=== PATIENT | male | born 1935 | race Hispanic/Latino ===

== ENCOUNTER 2024-10-26 15:01 | Inpatient (IN) | payer OTHER ==
[2024-10-26 16:26] LABS: Absolute Eosinophils 0.1 K/uL (0-0.5); Absolute Lymphocytes (CBC) 1.2 K/uL (0.7-4.9); Absolute Monocytes 0.5 K/uL (0.1-1.3); Absolute Neutrophil 4.9 K/uL (1.8-8.0); Basophils % 0.4 % (0-1.3); Hematocrit 37.9 % (39.6-49.0); Hemoglobin 13.1 g/dL (13.6-17.9); Lymphocytes % 18.1 % (15.3-44.8); MCH 28.9 pg (27.0-35.0); MCHC 34.6 g/dL (32.0-36.0); MCV 83.7 fL (80-100); MPV 7.7 fL (7.6-11.3); Monocytes % 7.9 % (3.3-12.3); Neutrophils % 71.6 % (41.7-73.7); Platelets 272 thou/uL (152-406); RBC Red Blood Cell Count 4.53 M/uL (4.33-5.43); Red Cell Distribution Width 14.1 % (12.1-15.2)
[2024-10-26 16:41] LABS: AST/SGOT 12 U/L (15-37); Albumin 3.6 g/dL (3.4-5.0); Albumin/Globulin Ratio 0.9 (1.1-1.8); Alkaline Phosphatase 76 U/L (45-117); Anion Gap 6.5 mEq/L (5.0-15.0); BUN Blood Urea Nitrogen 19 mg/dL (7-18); Bicarbonate 30 mEq/L (21-32); Bilirubin Total 0.5 mg/dL (0.2-1.0); Globulin 4.1 g/dL (2.3-3.5); Glomerular Filtration Rate 83 ml/min (=/>90); Glucose Level 113 mg/dL (74-106); Lipase 34 U/L (13-75); Potassium 3.5 mEq/L (3.5-5.1); Protein, Total 7.7 g/dL (6.4-8.2); Sodium Level 134 mEq/L (136-145)
[2024-10-26 16:43] LABS: ALT/SGPT < 14 U/L (16-61)
[2024-10-26 17:14] LABS: Urine Bilirubin NEGATIVE (Negative); Urine Blood Negative (Negative); Urine Clarity Clear (Clear); Urine Color Colorless (Yellow); Urine Glucose NEGATIVE (Negative); Urine Ketones NEGATIVE (Negative); Urine Microscopic Reflex YN NO UMIC; Urine Nitrite NEGATIVE (Negative); Urine Protein NEGATIVE (Negative); Urine Urobilinogen Normal (Normal)
--- NOTE | 2024-10-26 17:14 | RAD REPORT ---
EXAMINATION: CT ABDOMEN AND PELVIS WITH CONTRAST CLINICAL INDICATION: ABD PAIN TECHNIQUE: CT abdomen and pelvis was performed, after the administration of IV contrast, as [facility]. Axial, sagittal and coronal reconstructions were obtained. One or more of the following dose reduction techniques were used: Automated exposure control, adjustment of the mA and k V according to patient size, and iterative reconstruction. Unless otherwise specified, incidental findings do not require dedicated imaging follow-up. COMPARISON: No prior exam. FINDINGS: LOWER CHEST: The visualized lung bases are clear. Small hiatal hernia. LIVER: Mild fatty liver is present. No worrisome focal lesion or biliary dilatation is seen. Small low-density lesion left lobe liver measuring 6 mm, likely benign. Cholecystectomy. SPLEEN: Normal size. No focal lesion. PANCREAS: No mass, ductal dilation, or marge-pancreatic fluid. ADRENALS: Normal; no mass. KIDNEYS: Normal size and contour. No hydronephrosis. GASTROINTESTINAL TRACT: There is significant stool retention throughout the colon with advanced diver ticulosis coli sigmoid colon without diverticulitis. Focal ventral hernia containing mildly thickened segment of small bowel. Small bowel fecalization. APPENDIX: Appendix not visualized, but no inflammatory changes in region of appendix. LYMPH NODES: No lymphadenopathy. MUSCULOSKELETAL: Mild lower lumbar degenerative changes. ADDITIONAL FINDINGS: Significant prostate enlargement. IMPRESSION: Significant fecal retention in the colon with small bowel fecal fecallization. Multiple ventral hernia containing mildly thickened small bowel loop. Suggest clinical assessment for possible incarceration. Advanced sigmoid diverticulosis coli is present without diverticulitis findings. Colonoscopy may be c onsidered for direct visualization. Moderate prostate enlargement.
--- NOTE | 2024-10-26 20:25 | EDPHYS ---
Physician Documentation [facility] Name: Gaetano Coates Age: 88 yrs Sex: Male : 1935 Arrival Date: 10/26/2024 Time: 15:01 Bed IW7 Private MD: ED Physician Katharine Ellsworth HPI: 10/26 20:23 This 88 yrs old Male presents to ER via Ambulatory with complaints of Groin gb1 Pain, Back Pain. 20:23 88-year-old male with groin pain and back pain and frequency and urgency of gb1 urination. He has a history of BPH, hypertension and dementia. He denies any fever chills denies any nausea or vomiting or diarrhea. He has had symptoms for 2 to 3 days.. Historical: - Allergies: 15:53 No Known Allergies; iw - PMHx: 15:53 Dementia; Hypertensive disorder; enlarged prostate; iw - PSHx: 15:53 hernia; knee; iw - Immunization history:: Adult Immunizations not up to date. - Infectious Disease History:: Denies. - Social history:: Smoking status: Patient denies any tobacco usage or history of. Exam: 20:23 Constitutional: This is a well developed, well nourished patient who is awake, alert, gb1 and in no acute distress. Head/Face: Normocephalic, atraumatic. Eyes: Pupils equal round and reactive to light, extra-ocular motions intact. Lids and lashes normal. Conjunctiva and sclera are non-icteric and not injected. Cornea within normal limits. Periorbital areas with no swelling, redness, or edema. ENT: Nares patent. No nasal discharge, no septal abnormalities noted. Tympanic membranes are normal and external auditory canals are clear. Oropharynx with no redness, swelling, or masses, exudates, or evidence of obstruction, uvula midline. Mucous membranes moist. Neck: Trachea midline, no thyromegaly or masses palpated, and no cervical lymphadenopathy. Supple, full range of motion without nuchal rigidity, or vertebral point tenderness. No Meningismus. Chest/axilla: Normal chest wall appearance and motion. Nontender with no deformity. No lesions are appreciated. Cardiovascular: Regular rate and rhythm with a normal S1 and S2. No gallops, murmurs, or rubs. Normal PMI, no JVD. No pulse deficits. Respiratory: Lungs have equal breath sounds bilaterally, clear to auscultation and percussion. No rales, rhonchi or wheezes noted. No increased work of breathing, no retractions or nasal flaring. Abdomen/GI: Diffuse generalized tenderness with normal bowel sounds. No distension or tympany. No guarding or rebound. No evidence of tenderness throughout. Skin: Warm, dry with normal turgor. Normal color with no rashes, no lesions, and no evidence of cellulitis. MS/ Extremity: Pulses equal, no cyanosis. Neurovascular intact. Full, normal range of motion. Neuro: Awake and alert, GCS 15, oriented to person, place, time, and situation. Cranial nerves II-XII grossly intact. Motor strength 5/5 in all extremities. Sensory grossly intact. Cerebellar exam normal. Normal gait. Vital Signs: 15:51 BP 158 / 107; Pulse 68; Resp 19; Temp 98.4; Pulse Ox 100% on R/A; Weight 86.18 kg; iw Height 5 ft. 11 in. ; Pain 8/10; 18:30 BP 130 / 65; Pulse 70; Resp 16; Pulse Ox 97% on R/A; db 19:30 BP 156 / 116; Pulse 83; Resp 17; Pulse Ox 98% on R/A; ay 20:42 BP 141 / 73; Pulse 76; Resp 18; Pulse Ox 98% on R/A; ay 21:03 BP 124 / 56; Pulse 81; Resp 16; Pulse Ox 98% on R/A; ay 22:15 BP 139 / 81; Pulse 77; Resp 17; Pulse Ox 95% on R/A; ay 23:00 BP 127 / 73; Pulse 67; Resp 16; Pulse Ox 96% on R/A; ay 15:51 Body Mass Index 26.50 (86.18 kg, 180.34 cm) iw 15:51 Pain Scale: Adult iw MDM: 15:47 Medical Screening Exam initiated gb 20:23 Data reviewed: vital signs, nurses notes, radiologic studies, CT scan. gb1 20:23 ED course: 88-year-old male with generalized abdominal pain he has a history of a gb1 ventral hernia repair several years ago today he shows multiple ventral hernias with concern for thickened small bowel loops that is consistent with and concerning for incarceration. I discussed the case with Dr. Barraza and he recommended hospital observation with repeat exam overnight and then likely to proceed with a nonoperative setting. Will plan to continue continue the patient's n.p.o. status after midnight and treat his abdominal pain. I discussed the plan of care with the patient's and the patient who are both agreeable.. 10/26 15:56 Order name: CBC with Diff; Complete Time: 17:30 gb1 10/26 15:56 Order name: CMP; Complete Time: 17:30 gb1 10/26 15:56 Order name: Lipase; Complete Time: 17:30 gb1 10/26 15:56 Order name: Urinalysis w/ reflexes; Complete Time: 17:30 gb1 10/26 21:02 Order name: Urinalysis w/ reflexes EDMS 10/26 21:02 Order name: CBC with Automated Diff EDMS 10/26 21:02 Order name: CBC with Automated Diff EDMS 10/26 21:02 Order name: Comprehensive Metabolic Panel EDMN 10/26 21:02 Order name: Comprehensive Metabolic Panel EDMN 10/26 16:11 Order name: CT Abd/Pelvis - IV Contrast Only; Complete Time: 17:30 gb1 10/26 15:56 Order name: IV Saline Lock; Complete Time: 18:41 gb1 10/26 15:56 Order name: Labs collected and sent; Complete Time: 18:41 gb1 10/26 20:12 Order name: NPO gb1 Administered Medications: No medications were administered Disposition Summary: 10/26/24 20:25 Hospitalization Ordered Notes: Hospitalization Status: Observation gb1 Provider: Sudeep Uriostegui [facility] Location: Telemetry/MedSur (observation) gb1 Condition: Stable gb1 Problem: an acute exacerbation gb1 Symptoms: have worsened gb1 Bed/Room Type: Standard [facility] Room Assignment: 401(10/26/24 21:28) kl Diagnosis - Abdominal pain, Generalized gb1 - Other and unspecified ventral hernia with obstruction, without gangrene gb1 Forms: - Medication Reconciliation Form gb1 - SBAR form gb1 - Leadership Thank You Letter gb1 Signatures: Dispatcher [employer] Sonya Angulo RN RN kl Williams, Irene, RN RN iw Blocker, Gina, MD MD gb1 Corrections: (The following items were deleted from the chart) 21:28 20:25 gb1 kl
--- NOTE | 2024-10-26 20:25 | ER ---
Nurse's Notes [facility] Name: Gaetano Coates Age: 88 yrs Sex: Male : 1935 Arrival Date: 10/26/2024 Time: 15:01 Bed IW7 Private MD: Diagnosis: Abdominal pain, Generalized;Other and unspecified ventral hernia with obstruction, without gangrene Presentation: 10/26 15:51 Chief complaint: Patient states: lower abd pain radiating to back , both sides , denies iw pain with urination but the reports he has been urinating more frequently. Coronavirus screen: At this time, the client does not indicate any symptoms associated with coronavirus-19. Ebola Screen: No symptoms or risks identified at this time. Initial Sepsis Screen: Does the patient meet any 2 criteria? No. Patient's initial sepsis screen is negative. Does the patient have a suspected source of infection? No. Patient's initial sepsis screen is negative. Risk Assessment: Do you want to hurt yourself or someone else? Patient reports no desire to harm self or others. Onset of symptoms was October 23, 2024. 15:51 Method Of Arrival: Ambulatory iw 15:51 Acuity: WADE 3 iw Historical: - Allergies: 15:53 No Known Allergies; iw - PMHx: 15:53 Dementia; Hypertensive disorder; enlarged prostate; iw - PSHx: 15:53 hernia; knee; iw - Immunization history:: Adult Immunizations not up to date. - Infectious Disease History:: Denies. - Social history:: Smoking status: Patient denies any tobacco usage or history of. Screenin:30 [facility] ED Fall Risk Assessment (Adult) History of falling in the last 3 months, db including since admission No falls in past 3 months (0 pts) Confusion or Disorientation No (0 pts) Intoxicated or Sedated No (0 pts) Impaired Gait Yes (1 pt) Mobility Assist Device Used Yes (1 pt) Altered Elimination No (0 pt) Score/Fall Risk Level 0 - 2 = Low Risk Oriented to surroundings, Maintained a safe environment. Abuse screen: Denies threats or abuse. Denies injuries from another. Nutritional screening: No deficits noted. Tuberculosis screening: No symptoms or risk factors identified. Assessment: 18:30 Reassessment: Patient appears in no apparent distress at this time. Patient and/or db family updated on plan of care and expected duration. Pain level reassessed. Patient is alert, oriented x 3, equal unlabored respirations, skin warm/dry/pink. General: Appears in no apparent distress. comfortable, Behavior is calm, cooperative. Pain: Complains of pain in back. Neuro: Level of Consciousness is awake, alert, obeys commands, Oriented to person, place, time, situation. 19:37 General: Appears in no apparent distress. Behavior is calm, cooperative. Pain: ay Complains of pain in chest and pelvis and back Pain currently is 9 out of 10 on a pain scale. Neuro: Level of Consciousness is awake, alert, obeys commands, Oriented to person, place, time, situation, Speech is normal. Cardiovascular: Reports chest pain, Capillary refill < 3 seconds Patient's skin is warm and dry. Respiratory: Airway is patent Respiratory effort is even, unlabored, Respiratory pattern is regular, Denies cough, shortness of breath. GI: Patient currently denies nausea, vomiting. : No signs and/or symptoms were reported regarding the genitourinary system. EENT: No signs and/or symptoms were reported regarding the EENT system. Derm: No signs and/or symptoms reported regarding the dermatologic system. Musculoskeletal: Reports Generalized weakness. Vital Signs: 15:51 BP 158 / 107; Pulse 68; Resp 19; Temp 98.4; Pulse Ox 100% on R/A; Weight 86.18 kg; iw Height 5 ft. 11 in. ; Pain 8/10; 18:30 BP 130 / 65; Pulse 70; Resp 16; Pulse Ox 97% on R/A; db 19:30 BP 156 / 116; Pulse 83; Resp 17; Pulse Ox 98% on R/A; ay 20:42 BP 141 / 73; Pulse 76; Resp 18; Pulse Ox 98% on R/A; ay 21:03 BP 124 / 56; Pulse 81; Resp 16; Pulse Ox 98% on R/A; ay 22:15 BP 139 / 81; Pulse 77; Resp 17; Pulse Ox 95% on R/A; ay 23:00 BP 127 / 73; Pulse 67; Resp 16; Pulse Ox 96% on R/A; ay 15:51 Body Mass Index 26.50 (86.18 kg, 180.34 cm) iw 15:51 Pain Scale: Adult iw ED Course: 15:04 Patient arrived in ED. im 15:06 Katharine Ellsworth MD is Attending Physician. gb1 15:53 Triage completed. iw 15:54 Arm band placed on. iw 16:34 Initial lab(s) drawn, by me, sent to lab. Inserted saline lock: 22 gauge antecubital iw area, using aseptic technique. Blood collected. Flushed with 10 mL NS. 17:06 CT Abd/Pelvis - IV Contrast Only In Process Unspecified. EDMS 18:30 Patient has correct armband on for positive identification. Bed in low position. Call db light in reach. Pulse ox on. NIBP on. Pillow given. 19:37 Miya Padilla, RN is Primary Nurse. ay 20:24 Sudeep Uriostegui MD is Hospitalizing Provider. [facility] 10/27 04:23 Provided Education on: admission. cp4 04:23 No provider procedures requiring assistance completed. Patient admitted, IV remains in cp4 place. Administered Medications: No medications were administered Medication: 10/26 18:30 VIS not applicable for this client. db Outcome: 20:25 Decision to Hospitalize by Provider. [facility] 10/27 04:23 Admitted to Med/surg accompanied by tech, via stretcher, with chart, cp4 Condition: stable Instructed on the need for admit, 04:24 Patient left the ED. cp4 Signatures: Dispatcher [employer] EDLesly Rothman, RN ELISSA iw Ayla Cooney RN RN Shyanne Reynolds Katharine Ellsworth MD MD gb Valorie Ramirez cp4 Miya Padilla, ELISSA benavidez
--- NOTE | 2024-10-26 20:56 | P.HP ---
Certification for Inpatient Patient admitted to: Inpatient With expected LOS: >2 Midnights Practitioner: I am a practitioner with admitting privileges, knowledge of patient current condition, hospital course, and medical plan of care. Services: Services provided to patient in accordance with Admission requirements found in Title 42 Section 412.3 of the Code of Federal Regulations Patient History Date of Service: 10/27/24 Reason for admission: Abdominal Distention and Pain History of Present Illness: 88-year-old male with a past medical history of hypertension, BPH, dementia, history of hernia who was brought to ER with abdominal discomfort and groin pain and distention which has been going on for the last 2 to 3 days and has been progressively getting worse. Denies any fever or chills. No nausea vomiting or diarrhea. He is a poor historian because of dementia and hence most of the history is obtained from chart review and talking to the ER physician and family member at the bedside. No sick contacts Patient was assessed in the ER and was admitted for further management of acute abdomen possible incarcerated hernia Patient had a CT scan which consistent with Significant fecal retention in the colon with small bowel fecal fecallization. Multiple ventral hernia containing mildly thickened small bowel loop. Suggest clinical assessment for possible incarceration. Advanced sigmoid diverticulosis coli is present without diverticulitis findings. Allergies No Known Allergies Allergy (Verified 10/27/24 01:20) Home medications list reviewed: Yes Home Medications: Amlodipine [Norvasc] 10 mg PO DAILY 10/27/24 Finasteride [Proscar] 5 mg PO DAILY 10/27/24 Losartan/Hydrochlorothiazide [Losartan-Hctz 100-12.5 mg Tab] 12.5 mg PO DAILY 10/27/24 Tamsulosin [Flomax*] 1 cap PO BEDTIME 10/27/24 - Past Medical/Surgical History Past Medical History: Reviewed- Non-Contributory Past Surgical History: Reviewed- Non-Contributory - Family History Family History: Reviewed- Non-Contributory - Social History Smoking Status: Never smoker Review of Systems 10-point ROS is otherwise unremarkable Physical Examination - Vital Signs Temperature: 97.8 F Blood Pressure: 138/72 Pulse: 76 Respirations: 18 Pulse Ox (%): 94 - Physical Exam General: Alert, In no apparent distress, Mild distress HEENT: Atraumatic, Normocephalic Neck: Supple, JVD not distended Respiratory: Clear to auscultation bilaterally, Normal air movement Cardiovascular: Regular rate/rhythm, Normal S1 S2 Capillary refill: <2 Seconds Gastrointestinal: Soft and benign, W/out hepatosplenomegaly Musculoskeletal: No clubbing, No swelling Integumentary: No rashes Neurological: Normal speech, Normal strength at 5/5 x4 extr Lymphatics: No axilla or inguinal lymphadenopathy - Studies Laboratory Data (last 24 hrs) 10/26/24 10/26/24 16:13 16:13 WBC 6.90 Hgb 13.1 L Hct 37.9 L Plt Count 272 Sodium 134 L Potassium 3.5 BUN 19 H Creatinine 0.89 Glucose 113 H Total Bilirubin 0.5 AST 12 L ALT < 14 L Alkaline Phosphatase 76 Lipase 34 Assessment and Plan - Plan Intractable abdominal pain Pain control shortness of breath CT findings noted Significant fecal retention in the colon with small bowel fecal fecallization. Multiple ventral hernia containing mildly thickened small bowel loop. Suggest clinical assessment for possible incarceration. Advanced sigmoid diverticulosis coli is present without diverticulitis findings. Moderate prostate enlargement Surgery consulted Pain control Will keep n.p.o. for now Dementia Continue home medications and titrate as needed Hypertension Antihypertensives titrated Continue home medications and titrate as needed Hyperlipidemia Continue statin GI/DVT prophylaxis Advanced directive full code Discharge Plan: Home Plan to discharge in: 48 Hours - Advance Directives Does patient have a Living Will: No Does patient have a Durable POA for Healthcare: No - Code Status/Comfort Care Code Status: Full Code Time Spent Managing Pts Care (In Minutes): 48
[2024-10-26] MEDS ORDERED: MORPHINE 2 MG/ML SYR IV PRN (21:02)
[2024-10-26] MEDS ORDERED: HYDROCODONE/APAP 5/325 MG TAB PO PRN (21:02)
[2024-10-27 01:04] VITALS: BMI 27.3
[2024-10-27] MEDS: D5 0.45 NS 1,000 ML IV SCH (02:55)
[2024-10-27 06:22] LABS: Absolute Eosinophils 0.1 K/uL (0-0.5); Absolute Monocytes 0.5 K/uL (0.1-1.3); Basophils % 0.5 % (0-1.3); Eosinophils % 1.8 % (0-4.4); Hematocrit 38.8 % (39.6-49.0); Hemoglobin 13.5 g/dL (13.6-17.9); Lymphocytes % 18.1 % (15.3-44.8); MCH 28.7 pg (27.0-35.0); MCHC 34.7 g/dL (32.0-36.0); MCV 82.7 fL (80-100); MPV 7.8 fL (7.6-11.3); Monocytes % 8.6 % (3.3-12.3); Platelets 252 thou/uL (152-406); RBC Red Blood Cell Count 4.69 M/uL (4.33-5.43); Red Cell Distribution Width 14.2 % (12.1-15.2)
[2024-10-27 06:41] LABS: Albumin 3.3 g/dL (3.4-5.0); Albumin/Globulin Ratio 0.8 (1.1-1.8); Alkaline Phosphatase 77 U/L (45-117); Anion Gap 6.1 mEq/L (5.0-15.0); BUN Blood Urea Nitrogen 13 mg/dL (7-18); Bicarbonate 31 mEq/L (21-32); Bilirubin Total 0.7 mg/dL (0.2-1.0); Globulin 4.1 g/dL (2.3-3.5); Glomerular Filtration Rate 88 ml/min (=/>90); Glucose Level 120 mg/dL (74-106); Potassium 3.1 mEq/L (3.5-5.1); Protein, Total 7.4 g/dL (6.4-8.2); Sodium Level 136 mEq/L (136-145)
[2024-10-27 06:42] LABS: ALT/SGPT < 14 U/L (16-61); AST/SGOT < 10 U/L (15-37)
[2024-10-27] MEDS: KCL 20 MEQ/100 mL IVPB 20 MEQ/100 ML BAG IV SCH (07:58)
[2024-10-27] MEDS: FLU (Fluarix Triv) TS24-25(6MOS UP)/PF 45 MCG/0.5 ML Syringe IM ONE (08:45)
--- NOTE | 2024-10-27 13:38 | CON ---
Date of Consultation: 10/27/2024 Reason For Service: Back pain, abdominal pain, and also some pelvic pain. Indication: This is a case of an 88-year-old patient with history of dementia, brought to the ER wit h his described discomfort and groin discomfort and also back pain. The patient was admitted to the hospital for observation. During the workup, patient had to have umbilical hernia. I am glad today 1 of the family members came in at bedside and explained that he had this hernia for many years. The y have not been able to fix that because of his medical issues and it is something chronic. He feels better right now. He is having bowel movement. He has not been able to do so for 3 days and he fee ls a lot better. No pain at this moment. Allergies: NONE. Medical Problems: Reviewed including hypertension, BPH, dementia. Medications: Include Norvasc, Proscar, losartan, and Flomax. Surgeries: Unknown. Social History: He does not smoke. He does not drink alcohol. Family History: Noncontributory. Unknown if the person had colonoscopy before or not. Review of Systems: Right now has no nausea, no vomiting. He wants to go to have a bowel movement again. No guarding or rebound. He feels a lot better. Physical Examination: Vital Signs: Reviewed. General: The patient is awake, alert. No distress. Cooperative and communicative. HEENT: Pupils are equal and reactive. Anicteric. Neck: Supple. Chest: Clear. Abdomen: Soft and depressible. No guarding or rebound. No peritoneal signs. The patient has the v entral hernia present, but no tenderness in that region. Extremities: Good capillary refill. Laboratory Data: Blood work shows WBC count of 5, hemoglobin of 13. CAT scan of the abdomen and pel vis shows significant fecal retention. Multiple ventral hernias containing mild thickening of small bowel, diverticulosis present without diverticulitis, and moderate prostate enlargement. Assessment: This is an 88-year-old person, comes to us with multiple symptoms. Also happened to hav e a chronic hernia. I had discussion at bedside with the patient and the patient's family member. O nce again, he has explained they were aware of the hernia. It has not caused any trouble. They pref erred not to act on it. I explained that even though his condition and his dementia is still the ind ications for surgery still there since this bowel trapped in that area and at 1 point becomes emergen t, although I understand why the hesitancy to have repair, sure they are afraid that patient may end up in the ventilator or even from the any surgical intervention or just this one, but they real ized that at this moment, this maybe an emergent that may even require bowel resection. So, I explai kim to them the surgical options that we have. They are going to allow me to see if I do a small bow el series tomorrow and that probably may help and determine if there is obstruction there or not. If there is a complete obstruction, they may then consider allowing surgical intervention. There is no obstruction at that moment. They prefer to continue a conservative treatment. We agreed with that plan, if their plan is their wishes. At this moment, he has no peritonitis. He is having bowel move ment. So let us see if this small-bowel series once again can be done and then help and determine an d have an informed decision. This obviously if clinically he does not deteriorate. HM/MODL Voice ID: [id number] Report ID: [id number]
--- NOTE | 2024-10-27 17:28 | P.PN ---
Subjective Date of Service: 10/27/24 Chief Complaint: Abdominal Distention and Pain Patient denies any new complaint. He denies any abdominal pain. He had a bowel movement today. Physical Examination - Vital Signs Temperature: 97.8 F Blood Pressure: 149/68 Pulse: 79 Respirations: 16 Pulse Ox (%): 97 Assessment And Plan - Plan Physical examination General: Alert and oriented x3, NAD, HEENT: Conjunctiva not pale, anicteric sclera Neck: Supple, no elevated JVD Heart: Heart sounds 1 and 2 normal, regular rhythm, normal rate, no pedal edema Lungs: Clear to auscultation bilaterally, adequate breath sounds bilaterally, no rhonchi or crackles. Abdomen: Soft, nondistended, nontender, normal bowel sounds. Extremities: No tenderness, no deformity Skin: Normal skin turgor, no rash, no nodules or ulcers. Neuro: No focal motor deficit. Normal speech. Psychiatry: Normal mood, no agitation. Assessment and plan Intractable abdominal pain Incarcerated hernia Constipation Sigmoid diverticulosis Because of concern for incarcerated hernia with bowel obstruction. Patient's abdomen is benign Surgery Dr. Barraza evaluated patient and recommended medical management for now. Keep n.p.o.. Small bowel series tomorrow Supportive measures with analgesics as needed Monitor and optimize electrolytes. Alzheimer dementia Hypertension Continue home medications with small sips of water. DVT prophylaxis: Heparin SQ Advanced directive: full code
[2024-10-27] MEDS: POTASSIUM CL SA 10 MEQ TAB PO ONE (17:31)
[2024-10-27] MEDS: TAMSULOSIN 0.4 MG SR CAP PO SCH (20:37)
[2024-10-27] MEDS: LORazepam 2 MG/ML VIAL IV ONE (22:05)
[2024-10-28] MEDS: LORazepam 2 MG/ML VIAL IV ONE (01:06)
[2024-10-28 06:04] LABS: Absolute Lymphocytes (CBC) 0.7 K/uL (0.7-4.9); Absolute Monocytes 0.4 K/uL (0.1-1.3); Absolute Neutrophil 5.8 K/uL (1.8-8.0); Basophils % 0.3 % (0-1.3); Eosinophils % 0.5 % (0-4.4); Hematocrit 43.2 % (39.6-49.0); Lymphocytes % 9.9 % (15.3-44.8); MCH 28.9 pg (27.0-35.0); MCHC 34.7 g/dL (32.0-36.0); MCV 83.2 fL (80-100); MPV 7.5 fL (7.6-11.3); Monocytes % 6.4 % (3.3-12.3); Neutrophils % 82.9 % (41.7-73.7); Nucleated Red Blood Cells % 0.1 % (0-0); Platelets 283 thou/uL (152-406); RBC Red Blood Cell Count 5.19 M/uL (4.33-5.43); Red Cell Distribution Width 14.4 % (12.1-15.2)
[2024-10-28 06:18] LABS: Anion Gap 6.6 mEq/L (5.0-15.0); Potassium 3.6 mEq/L (3.5-5.1)
[2024-10-28] MEDS: LOSARTAN POTASSIUM 50 MG TABLET PO SCH (08:52)
[2024-10-28] MEDS: AMLODIPINE 10 MG TAB PO SCH (08:52)
[2024-10-28] MEDS: hydroCHLOROthiazide 12.5 MG CAP PO SCH (08:52)
[2024-10-28] MEDS: FINASTERIDE 5 MG TAB PO SCH (08:52)
[2024-10-28] MEDS: KCL 20 MEQ/100 mL IVPB 20 MEQ/100 ML BAG IV SCH (08:58)
[2024-10-28] MEDS ORDERED: HOME MED 1 EA UNK (Losartan/Hydrochlorothiazide [Losartan-Hctz 100-12.5 Mg Tab] Tablet) PO SCH (09:00)
[2024-10-28 10:04] LABS: Magnesium 2.5 mg/dL (1.6-2.4); Phosphorus 2.4 mg/dL (2.5-4.9)
[2024-10-28] MEDS: HALOPERIDOL LACT 5 MG/ML INJ IV ONE (11:13)
[2024-10-28] MEDS: PNEUMOCOCCAL VACCINE 0.5 ML IMVAC ONE (12:00)
--- NOTE | 2024-10-28 15:53 | PN ---
Date of Progress Note: 10/28/2024 Diagnosis: Abdominal pain, history of abdominal hernia. The patient is doing well. The family and me discussed the case yesterday. They are trying not to having had surgery. Only we will consider t hat we proved a small bowel series that he has complete bowel obstruction and today he did want to dr ink it and then the personnel then asked to put an NG tube, but he pulled it out. They were trying t o put it in, so never become a challenge. The family is going to trying to talk to the patient again coming down. He has some history of dementia, so it is understandable. The abdomen is still soft a nd depressible, but still have the effect of the hernia and unknown if this is causing complete bowel obstruction or not. So, we will have to find ways how to prove this and we are going to discuss wit h the radiologist any other suggestions they might have. ANEL/SHEA Voice ID: [id number] Report ID: [id number]
--- NOTE | 2024-10-28 16:19 | P.PN ---
Subjective Date of Service: 10/28/24 Chief Complaint: Abdominal Distention and Pain Patient currently obtunded with intermittent agitation. Nursing staff report patient was agitated last night and was given ativan. Physical Examination - Vital Signs Temperature: 97.4 F Blood Pressure: 154/79 Pulse: 70 Respirations: 15 Pulse Ox (%): 93 Assessment And Plan - Plan Physical examination General: Obtunded, agitation. Heart: Heart sounds 1 and 2 normal, regular rhythm, normal rate, no pedal edema Lungs: Clear to auscultation bilaterally, adequate breath sounds bilaterally, no rhonchi or crackles. Abdomen: Soft, nondistended, nontender, normal bowel sounds. Extremities: No tenderness, no deformity Skin: Normal skin turgor, no rash, no nodules or ulcers. Neuro: No focal motor deficit. Normal speech. Psychiatry: Agitated. Assessment and plan Intractable abdominal pain Incarcerated hernia Constipation Sigmoid diverticulosis Because of concern for incarcerated hernia with bowel obstruction. Patient's abdomen is benign Surgery Dr. Barraza evaluated patient and recommended medical management for now. Keep n.p.o.. Small bowel series tomorrow Supportive measures with analgesics as needed Monitor and optimize electrolytes. Alzheimer dementia Hypertension Continue home medications with small sips of water. 10/28 Patient is obtunded and not able to undergo small bowel series as recommended by surgery Dr. Barraza. An attempt was made to insert an NG tube for oral contrast but this was unsuccessful. Dr. Barraza is following. Avoid psychoactive medications. Continue supportive measures. Empiric antibiotics. Keep n.p.o. DVT prophylaxis: Heparin SQ Advanced directive: full code
[2024-10-28] MEDS: PIPER TAZO 3.375 GM in NA CHLORIDE 0.9% 100 ML IV SCH (17:18)
[2024-10-28] MEDS: HALOPERIDOL LACT 5 MG/ML INJ IV PRN (19:12)
[2024-10-29 07:07] LABS: Anion Gap 9.3 mEq/L (5.0-15.0); Phosphorus 3.5 mg/dL (2.5-4.9); Potassium 3.3 mEq/L (3.5-5.1)
[2024-10-29] MEDS: POTASSIUM CL SA 10 MEQ TAB PO ONE (08:19)
[2024-10-29] MEDS: HALOPERIDOL LACT 5 MG/ML INJ IV ONE (12:40)
[2024-10-29] MEDS ORDERED: WATER FOR INJ,STERILE 10 ML IM PRN (15:30)
[2024-10-29] MEDS: ZIPRASIDONE MESYLA 20 MG/VIAL IM ONE (15:43)
--- NOTE | 2024-10-29 16:09 | PN ---
Date of Progress Note: 10/29/2024 This is a case of an 88-year-old patient with history of dementia, also came with some back pain and the CAT scan shows a ventral hernia with incarcerated small bowel. The family claimed that it has be en there in the past for many years, although I was asked the question to see if there is any obstruc tion or not. In order for us to determine that or at least help us to determine that we order a smal l bowel series. The abdomen got better. There is no tenderness in the hernia region. There is no g uarding or rebound. The abdomen is benign. When we ordered a small bowel series, he did not want to drink the contrast, so we also attempted an NG tube placement and that did not last, he pulled it ri ght away because of his dementia. The family asked us not to try that again. The family knows he is not enough awake to follow our orders. They asked us to see if we can feed him at least clear liqui d diet. We had a long discussion. Right now, he is benign. We do not see any major distention. Ob viously without a small bowel series, it is hard to determine what they asked me yesterday, which is the only going to sign this if we see the hernia is causing all of these problems, which I cannot cer tainly say yesterday or today, but they want to be clear liquid diet. They understand the consequenc es. They say the person is passing gas. The patient is having bowel movement and clinically improve d with no pain in his belly. So, okay we are going to give a clear liquid diet, just sip of clears a nd see if somehow we can come down little bit and eventually if possible the small bowel series that will determine the first question we had yesterday, does he need to have elective surgery or surgery during this admission. If clinically change, then we will not need a small bowel series, we just nee d an exploration, although I do not have any consent yet for that. ANEL/SHEA Voice ID: [id number] Report ID: [id number]
[2024-10-29] MEDS: ONDANSETRON 4 MG/2 ML VIAL IV PRN (16:12)
--- NOTE | 2024-10-29 17:36 | P.PN ---
Subjective Date of Service: 10/29/24 Chief Complaint: Abdominal Distention and Pain Patient has been quite agitated, intermittently aggressive. Patient was given a few doses of Haldol last night. Last recorded BM was 10/26/2024. Physical Examination - Vital Signs Temperature: 98.3 F Blood Pressure: 164/74 Pulse: 89 Respirations: 16 Pulse Ox (%): 98 Assessment And Plan - Plan Physical examination General: Obtunded, agitated Heart: Heart sounds 1 and 2 normal, regular rhythm, normal rate, no pedal edema Lungs: Clear to auscultation bilaterally, adequate breath sounds bilaterally, no rhonchi or crackles. Abdomen: Soft, nondistended, nontender, normal bowel sounds. Extremities: No tenderness, no deformity Skin: Normal skin turgor, no rash, no nodules or ulcers. Neuro: No focal motor deficit. Psychiatry: Agitated. Assessment and plan Intractable abdominal pain Incarcerated hernia Constipation Sigmoid diverticulosis Because of concern for incarcerated hernia with bowel obstruction. Patient's abdomen is benign Surgery Dr. Barraza evaluated patient and recommended medical management for now. Keep n.p.o.. Small bowel series tomorrow Supportive measures with analgesics as needed Monitor and optimize electrolytes. Alzheimer dementia Hypertension Continue home medications with small sips of water. 10/28 Patient is obtunded and not able to undergo small bowel series as recommended by surgery Dr. Barraza. An attempt was made to insert an NG tube for oral contrast but this was unsuccessful. Dr. Barraza is following. Avoid psychoactive medications. Continue supportive measures. Empiric antibiotics. Keep n.p.o. 10/29 Patient still remains quite agitated and unable to undergo small bowel series. He was finally calm with a dose of IM Geodon [address] Barraza, small bowel series as needed to decide whether patient needs surgery for the incarcerated hernia and possible bowel obstruction. Family agreed to NG tube insertion. NG tube inserted while patient was calm, so patient can undergo the small bowel series. Soft restraints ordered to keep patient from pulling off the NG tube. Keep patient n.p.o. D5 NS and increase rate. Empiric IV antibiotics. Dr. Barraza to follow. Radiology reports it is too late small bowel series to be performed today and will be done tomorrow. Haldol IV as needed for behavioral disturbance and agitation ordered. DVT prophylaxis: Heparin SQ Advanced directive: full code
--- NOTE | 2024-10-29 17:40 | RAD REPORT ---
EXAM: XR of the abdomen HISTORY: Abdominal pain Placement of NGT/OGT. Post Insertion. COMPARISON: None FINDINGS: XR of the abdomen shows a nonspecific, nonobstructive bowel gas pattern. Tip of the enteric tube is in the distal stomach. No suspicious calcifications are seen. The bones are unremarkable.
[2024-10-30 07:02] LABS: Anion Gap 8.7 mEq/L (5.0-15.0); Potassium 3.7 mEq/L (3.5-5.1)
[2024-10-30] MEDS: KCL 20 MEQ/100 mL IVPB 20 MEQ/100 ML BAG IV SCH (09:22)
--- NOTE | 2024-10-30 10:15 | P.PN ---
Date of Service: 10/30/24 Subjective: mentation improving, family at bedside - report starting to get closer to his baseline Physical Exam: GEN: Alert, oriented to self, confused CV: Regular rate and rhythm, no edema Pulm: Nonlabored respirations on room air, clear bilaterally ABD: soft, nontender, nondistended NG tube in place Problem List: Intractable abdominal pain 2/2 Incarcerated hernia Constipation Sigmoid diverticulosis Alzheimer dementia Hypertension Intractable abdominal pain 2/2 Incarcerated hernia Incarcerated hernia Constipation Sigmoid diverticulosis on admission, presents with worsening abdominal pains associated with groin pains. Denies n/v/d. Denies fever/chills. Poor historian d/t dementia. Most info obtained from chart/family. CT abdomen with multiple ventral hernia containing mildly thickened small bowel loop. Suggest clinical assessment for possible incarceration. CT also noted significant fecal retention in the colon with small bowel fecal fecallization. Advnaced sigmoid diverticulosis Dr. Barraza, general surgeon is following. Recommending medical management. 10/28 - Unable to do small bowel series d/t positioning/mentation. Bowel rest, pain control. Empiric Zosyn started (10/28-) PRN haldol added for agitation. 10/29 - Repeat KUB Family agreeable to NG tube placement. s/p NGT placement Given geodon x1 Restraints ordered d/t patient pulling at NG tube. advanced to clear liquids for dinner per Surgery 10/30 - Small bowel series ordered to eval for possible surgery for the incarcerated hernia and possible bowel obstruction resume CLD this evening dc NGT if report doesn't show SBO Alzheimer dementia Hypertension confirm home meds, restart as appropriate Code: Full Dispo: Home, 2-3 days Pending improvement, surgical recs. Time Spent Managing Pts Care (In Minutes): 55
[2024-10-30] MEDS: HYDRALAZINE HCL 20 MG/ML VIAL IV PRN (15:54)
--- NOTE | 2024-10-30 17:18 | PN ---
Date of Progress Note: 10/30/2024 Diagnosis: History of chronic hernias, dementia. The patient is doing well. They were able to insert a nasogastric tube last night and today he is glover ving small bowel series. Remember that this patient's family does not want any surgical intervention unless we prove there is complete obstruction of the small bowel in that area. They understand the consequence of delaying surgery, which means need for bowel resection, more complications, even . They are fully aware of that, but at the same time they know he has been having these issues for a long time and they did not want to put him through this process unless it is absolutely needed. So, we are going to follow up with the small bowel series today and then proceed on giving some advice s o they can make an informed decision. ANEL/SHEA Voice ID: [id number] Report ID: [id number]
--- NOTE | 2024-10-30 18:46 | RAD REPORT ---
EXAMINATION: Small bowel series CLINICAL INDICATION: Male, 88 years old. sbo COMPARISON: No prior exam. FINDINGS: Field Identification Specialist film shows a nonspecific bowel gas pattern. No obstruction or free air. No suspicious calcifica tions. Enteric tube in place. Gastric size and mucosal fold pattern are normal. No delay in transit of contrast into the small salome l. Small bowel is normal in diameter with only mild distention. No mucosal fold thickening or evidence of intrinsic or extrinsic mass identifiable, although evaluation of the small bowel fold pat tern is limited given motion artifact on the 45 minute 2 2 hours films. Transit time to the colon is Normal 3.5 hours. No fluoroscopy was performed. Total images acquired:7 IMPRESSION: Limited evaluation, with no evidence of small bowel dilation or contrast delayed transit.
[2024-10-30] MEDS: MELATONIN 3 MG TABLET PO PRN (22:55)
[2024-10-31 06:48] LABS: Absolute Basophils 0.1 K/uL (0-0.5); Absolute Eosinophils 0.1 K/uL (0-0.5); Absolute Lymphocytes (CBC) 0.8 K/uL (0.7-4.9); Absolute Monocytes 0.9 K/uL (0.1-1.3); Absolute Neutrophil 8.1 K/uL (1.8-8.0); Basophils % 0.6 % (0-1.3); Eosinophils % 0.5 % (0-4.4); Hematocrit 39.2 % (39.6-49.0); Hemoglobin 13.3 g/dL (13.6-17.9); Lymphocytes % 8.2 % (15.3-44.8); MCH 28.6 pg (27.0-35.0); MCHC 33.9 g/dL (32.0-36.0); MCV 84.4 fL (80-100); MPV 7.6 fL (7.6-11.3); Monocytes % 9.3 % (3.3-12.3); Neutrophils % 81.4 % (41.7-73.7); Platelets 276 thou/uL (152-406); RBC Red Blood Cell Count 4.64 M/uL (4.33-5.43); Red Cell Distribution Width 14.3 % (12.1-15.2)
[2024-10-31 07:04] LABS: Albumin 2.8 g/dL (3.4-5.0); Albumin/Globulin Ratio 0.7 (1.1-1.8); Anion Gap 9.3 mEq/L (5.0-15.0); Globulin 3.8 g/dL (2.3-3.5); Magnesium 2.3 mg/dL (1.6-2.4); Potassium 3.3 mEq/L (3.5-5.1); Protein, Total 6.6 g/dL (6.4-8.2)
--- NOTE | 2024-10-31 12:59 | P.PN ---
Date of Service: 10/31/24 Subjective: no acute events overnight improving afebrile Physical Exam: GEN: Alert, oriented to self, confused CV: Regular rate and rhythm, no edema Pulm: Nonlabored respirations on room air, clear bilaterally ABD: soft, nontender, nondistended Problem List: Intractable abdominal pain 2/2 Incarcerated hernia Constipation Sigmoid diverticulosis Alzheimer dementia Hypertension Intractable abdominal pain 2/2 Incarcerated hernia Constipation Sigmoid diverticulosis on admission, presents with worsening abdominal pains associated with groin pains. Denies n/v/d. Denies fever/chills. Poor historian d/t dementia. Most info obtained from chart/family. CT abdomen with multiple ventral hernia containing mildly thickened small bowel loop. Suggest clinical assessment for possible incarceration. CT also noted significant fecal retention in the colon with small bowel fecal fecallization. Advnaced sigmoid diverticulosis Dr. Barraza, general surgeon is following. Recommending medical management. 10/28 - Unable to do small bowel series d/t positioning/mentation. Bowel rest, pain control. Empiric Zosyn started (10/28-) PRN haldol added for agitation. 10/29 - Repeat KUB Family agreeable to NG tube placement. s/p NGT placement Given geodon x1 Restraints ordered d/t patient pulling at NG tube. advanced to clear liquids for dinner per Surgery 10/30 - Small bowel series: limited evaluation with no evidence of small bowel dilation or contrast delayed transit. resume CLD this evening dc NGT, restraints 10/31 - improving, mentally improving, tolerating CLD PT consult Alzheimer dementia Hypertension confirm home meds, restart as appropriate Code: Full Dispo: Will likely need HH vs SNF , ~2-3 days Pending improvement, surgical recs. Time Spent Managing Pts Care (In Minutes): 55
[2024-10-31] MEDS: POTASSIUM 25 MEQ EFFERV TAB PO ONE (18:14)
--- NOTE | 2024-10-31 20:34 | PN ---
Date of Progress Note: 10/31/2024 Reason For Service: Intermittent small-bowel obstruction with hernia. The patient is doing well. The imaging was discussed with the entire family. They noticed patient d oes not have any obstruction at this moment. The patient is tolerating diet. Imaging was discussed with the family. They want to continue conservative treatment. They did not want any surgical inter vention at this time. They understand the risk of not fixing the hernias may be and stran gulation. Does raise the issue if he comes because obviously they do not want to put their family th rough the process of surgery unless emergent. I understand that. We discussed different ways and sy mptoms to identify so he does not come late to the ER. The patient is tolerating diet. If the patie nt gets discharged home, we will see the patient p.r.n. ANEL/SHEA Voice ID: [id number] Report ID: [id number]
[2024-11-01 07:44] LABS: Anion Gap 9.6 mEq/L (5.0-15.0); Magnesium 2.5 mg/dL (1.6-2.4); Potassium 3.6 mEq/L (3.5-5.1)
--- NOTE | 2024-11-01 08:40 | EKG ---
Test Date: 2024-10-30 Test Time: 21:23:09 Media Supervisor: YULIANA MEASUREMENT RESULTS: Intervals: Rate: 82 WV: 170 QRSD: 152 QT: 434 QTc: 507 [place]: P: 31 WV: 170 QRS: -31 T: 39 INTERPRETIVE STATEMENTS: Sinus rhythm with marked sinus arrhythmia with frequent premature ventricular complexes Left axis deviation Right bundle branch block Abnormal ECG Compared to ECG 10/29/2024 14:27:32 Ventricular premature complex(es) now present Atrial premature complex(es) no longer present Aberrant conduction of supraventricular beat(s) no longer present Electronically Signed On 11-01-24 08:36:29 CDT by Fabricio Parikh
--- NOTE | 2024-11-01 08:48 | EKG ---
Test Date: 2024-10-29 Test Time: 14:27:32 Violin Maker Hand: RICKY MEASUREMENT RESULTS: Intervals: Rate: 95 ID: [id number] QRSD: 152 QT: 394 QTc: 495 [place]: P: 20 ID: [id number] QRS: -36 T: 55 INTERPRETIVE STATEMENTS: Sinus rhythm with premature atrial complexes with aberrant conduction Left axis deviation Right bundle branch block Abnormal ECG No previous ECG available for comparison Electronically Signed On 11-01-24 08:40:25 CDT by Fabricio Parikh
[2024-11-01] MEDS: POTASSIUM 25 MEQ EFFERV TAB PO ONE (09:29)
--- NOTE | 2024-11-01 11:45 | P.PN ---
Date of Service: 11/01/24 Subjective: no events overnight more alert/interactive some difficulty following commands with PT yesterday ambulated to bedside commode - a few feet with assistance by patient's caregiver Physical Exam: GEN: oriented to self, more alert CV: Regular rate and rhythm, no edema Pulm: Nonlabored respirations on room air, clear bilaterally ABD: soft, nontender, nondistended Problem List: Intractable abdominal pain 2/2 Incarcerated hernia Constipation Sigmoid diverticulosis Alzheimer dementia Hypertension Intractable abdominal pain 2/2 Incarcerated hernia Constipation Sigmoid diverticulosis on admission, presents with worsening abdominal pains associated with groin pains. Denies n/v/d. Denies fever/chills. Poor historian d/t dementia. Most info obtained from chart/family. CT abdomen with multiple ventral hernia containing mildly thickened small bowel loop. Suggest clinical assessment for possible incarceration. CT also noted significant fecal retention in the colon with small bowel fecal fecallization. Advnaced sigmoid diverticulosis Dr. Barraza, general surgeon is following. Recommending medical management. 10/28 - Unable to do small bowel series d/t positioning/mentation. Bowel rest, pain control. Empiric Zosyn started (10/28-) PRN haldol added for agitation. 10/29 - Repeat KUB Family agreeable to NG tube placement. s/p NGT placement Given geodon x1 Restraints ordered d/t patient pulling at NG tube. advanced to clear liquids for dinner per Surgery 10/30 - Small bowel series: limited evaluation with no evidence of small bowel dilation or contrast delayed transit. resume CLD this evening dc NGT, restraints 10/31 - improving, mentally improving, tolerating CLD PT consult 11/01 - ss/cm consulted to discuss dispo options, HH vs SNF continue PT Alzheimer dementia Hypertension confirm home meds, restart as appropriate Code: Full Dispo: Will likely need HH vs SNF , ~2 days Pending improvement Time Spent Managing Pts Care (In Minutes): 55
[2024-11-02 10:34] LABS: Anion Gap 10.2 mEq/L (5.0-15.0); Potassium 3.2 mEq/L (3.5-5.1)
--- NOTE | 2024-11-02 11:12 | P.PN ---
Date of Service: 11/02/24 Subjective: confused, attempting to get out of bed pulled out IV overnight intermittent agitation afebrile Physical Exam: GEN: oriented to self, confused CV: Regular rate and rhythm, no edema Pulm: Nonlabored respirations on room air, clear bilaterally ABD: soft, nontender, nondistended Problem List: Intractable abdominal pain 2/2 Incarcerated hernia Constipation Sigmoid diverticulosis Alzheimer dementia Hypertension Intractable abdominal pain 2/2 Incarcerated hernia Constipation Sigmoid diverticulosis on admission, presents with worsening abdominal pains associated with groin pains. Denies n/v/d. Denies fever/chills. Poor historian d/t dementia. Most info obtained from chart/family. CT abdomen with multiple ventral hernia containing mildly thickened small bowel loop. Suggest clinical assessment for possible incarceration. CT also noted significant fecal retention in the colon with small bowel fecal fecallization. Advnaced sigmoid diverticulosis Dr. Barraza, general surgeon is following. Recommending medical management. 10/28 - Unable to do small bowel series d/t positioning/mentation. Bowel rest, pain control. Empiric Zosyn started (10/28-) PRN haldol added for agitation. 10/29 - Repeat KUB Family agreeable to NG tube placement. s/p NGT placement Given geodon x1 Restraints ordered d/t patient pulling at NG tube. advanced to clear liquids for dinner per Surgery 10/30 - Small bowel series: limited evaluation with no evidence of small bowel dilation or contrast delayed transit. resume CLD this evening dc NGT, restraints 10/31 - improving, mentally improving, tolerating CLD PT consult 11/01 - ss/cm consulted to discuss dispo options, HH vs SNF advance to soft diet continue PT 11/02 - Confused. Pulled out IV overnight. Attempting to get out of bed. tolerating soft diet overall improving, worked with PT yesterday Alzheimer dementia Hypertension confirm home meds, restart as appropriate Code: Full Dispo: HH , ~1-2 days Pending improvement Time Spent Managing Pts Care (In Minutes): 55
[2024-11-02] MEDS: POTASSIUM 25 MEQ EFFERV TAB PO ONE (11:15)
[2024-11-03 07:05] LABS: Albumin 3.1 g/dL (3.4-5.0); Anion Gap 13.5 mEq/L (5.0-15.0); Phosphorus 3.4 mg/dL (2.5-4.9)
[2024-11-03 07:19] LABS: Magnesium 2.5 mg/dL (1.6-2.4); Potassium 3.5 mEq/L (3.5-5.1)
[2024-11-03] MEDS: POTASSIUM 25 MEQ EFFERV TAB PO ONE (08:41)
--- NOTE | 2024-11-03 11:29 | P.PN ---
Date of Service: 11/03/24 Subjective: worked with PT yesterday afebrile reportedly some loose stool Physical Exam: GEN: oriented to self, confused CV: Regular rate and rhythm, no edema Pulm: Nonlabored respirations on room air, clear bilaterally ABD: soft, nontender, nondistended Problem List: Intractable abdominal pain 2/2 Incarcerated hernia Constipation Sigmoid diverticulosis Alzheimer dementia Hypertension Intractable abdominal pain 2/2 Incarcerated hernia Constipation Sigmoid diverticulosis on admission, presents with worsening abdominal pains associated with groin pains. Denies n/v/d. Denies fever/chills. Poor historian d/t dementia. Most info obtained from chart/family. CT abdomen with multiple ventral hernia containing mildly thickened small bowel loop. Suggest clinical assessment for possible incarceration. CT also noted significant fecal retention in the colon with small bowel fecal fecallization. Advnaced sigmoid diverticulosis Dr. Barraza, general surgeon is following. Recommending medical management. 10/28 - Unable to do small bowel series d/t positioning/mentation. Bowel rest, pain control. Empiric Zosyn started (10/28-) PRN haldol added for agitation. 10/29 - Repeat KUB Family agreeable to NG tube placement. s/p NGT placement Given geodon x1 Restraints ordered d/t patient pulling at NG tube. advanced to clear liquids for dinner per Surgery 10/30 - Small bowel series: limited evaluation with no evidence of small bowel dilation or contrast delayed transit. resume CLD this evening dc NGT, restraints 10/31 - improving, mentally improving, tolerating CLD PT consult 11/01 - ss/cm consulted to discuss dispo options, HH vs SNF advance to soft diet 11/02 - Confused. Pulled out IV overnight. Attempting to get out of bed. tolerating soft diet overall improving, worked with PT yesterday 11/03 - worked with PT yesterday - demonstrated decreased balance and stability. Continue PT Alzheimer dementia Hypertension confirm home meds, restart as appropriate Code: Full Dispo: HH , ~1-2 days Pending improvement Time Spent Managing Pts Care (In Minutes): 55
[2024-11-03 16:52] VITALS: O2SAT 96
[2024-11-03] MEDS: MELATONIN 3 MG TABLET PO ONE (23:37)
[2024-11-03] MEDS: MELATONIN 3 MG TABLET PO SCH (23:55)
[2024-11-04] MEDS ORDERED: MELATONIN 3 MG TABLET PO PRN (03:27)
[2024-11-04 05:53] LABS: Absolute Lymphocytes (CBC) 0.6 K/uL (0.7-4.9); Absolute Monocytes 0.7 K/uL (0.1-1.3); Basophils % 0.5 % (0-1.3); Eosinophils % 0.5 % (0-4.4); Hematocrit 42.3 % (39.6-49.0); Hemoglobin 14.6 g/dL (13.6-17.9); Lymphocytes % 7.1 % (15.3-44.8); MCH 28.6 pg (27.0-35.0); MCHC 34.5 g/dL (32.0-36.0); MCV 82.8 fL (80-100); MPV 7.4 fL (7.6-11.3); Monocytes % 8.3 % (3.3-12.3); Neutrophils % 83.6 % (41.7-73.7); Platelets 278 thou/uL (152-406); RBC Red Blood Cell Count 5.11 M/uL (4.33-5.43)
[2024-11-04 06:07] LABS: Anion Gap 10.2 mEq/L (5.0-15.0); Potassium 3.2 mEq/L (3.5-5.1)
[2024-11-04] MEDS ORDERED: GUAIFENESIN 600 MG SA TAB PO PRN (07:02)
[2024-11-04] MEDS ORDERED: GUAIFENESIN 600 MG SA TAB PO SCH (09:00)
[2024-11-04] MEDS: POTASSIUM CL SA 10 MEQ TAB PO ONE (10:24)
[2024-11-04 16:07] VITALS: BP 158/78; TEMP 98
[2024-11-04] MEDS ORDERED: MELATONIN 3 MG TABLET PO SCH (21:00)
[2024-11-04] MEDS ORDERED: ENSURE ENLIVE 237 ML CAN PO SCH (21:00)
--- NOTE | 2024-11-05 06:45 | P.DS ---
Admission Date: 10/26/24 Discharge Date: 11/04/24 Disposition: DC HOME/HOME HEALTH CARE Discharge Condition: FAIR Reason for Admission: Abdominal Distention and Pain Consultations: General surgery - Dr. Barraza Brief History of Present Illness: 88yo M, PMH: hypertension, BPH, dementia, history of hernia Patient was brought to ER with abdominal discomfort and groin pain and distention which has been going on for the last 2 to 3 days and has been progressively getting worse. Denies any fever or chills. No nausea vomiting or diarrhea. He is a poor historian because of dementia and hence most of the history is obtained from chart review and talking to the ER physician and family member at the bedside. No sick contacts Patient was assessed in the ER and was admitted for further management of acute abdomen possible incarcerated hernia. Patient had a CT scan which consistent with Significant fecal retention in the colon with small bowel fecal fecallization. Multiple ventral hernia containing mildly thickened small bowel loop. Suggest clinical assessment for possible incarceration. Advanced sigmoid diverticulosis coli is present without diverticulitis findings. Hospital Course: Problem List: Intractable abdominal pain 2/2 Incarcerated hernia Constipation Sigmoid diverticulosis Alzheimer dementia Hypertension Physician discharge instructions: Patient presented with worsening abdominal pain associated with groin pain secondary to incarcerated hernia. CT abdomen on admission with focal ventral hernia containing mildly thickened small bowel loop suggestive of incarceration. CT also noted significant fecal retention and advanced sigmoid diverticulosis. Patient was evaluated by Dr. Barraza, general surgeon who recommended medical management with empiric antibiotics, pain control, bowel rest. Patient had minimal improvement over the first 48 hours after admission. Unable to get small bowel series due to patient's mentation / delirium, which was felt to be exacerbated by ativan. NG tube was placed 10/29 and removed 10/30 as he improved. Patient's diet was slowly advanced as nausea and pain improved. His mentation improved as well with time and avoidance of further ativan. Patient worked with PT throughout hospitalization who felt he would benefit from continued home health services. Patient was feeling better, abdominal pain improved, tolerating diet but with low appetite. Discussed home health vs possible intermediate facility after discharge. Family felt comfortable taking patient home with home health and PT. [facility] hoping to get increased hours of caregiver at home, which I agree with and would significantly help the patient and family. Medications: no change in medications. continue home meds as previously prescribed. Follow up: PCP 3-5 days General surgery in ~1-2 weeks. Please call to schedule / confirm appointments Physical Exam: GEN: oriented to self and place, confused CV: Regular rate and rhythm, no edema Pulm: Nonlabored respirations on room air, clear bilaterally ABD: soft, nontender, nondistended Vital Signs/Physical Exam: Temp Pulse Resp BP Pulse Ox 98 F 86 18 158/78 H 95 11/04/24 16:00 11/04/24 16:00 11/04/24 16:00 11/04/24 16:00 11/04/24 16:00 Laboratory Data at Discharge: WBC 8.30 thou/uL (4.3-10.9) 11/04/24 05:45 Hgb 14.6 g/dL (13.6-17.9) 11/04/24 05:45 Hct 42.3 % (39.6-49.0) 11/04/24 05:45 Plt Count 278 thou/uL (152-406) 11/04/24 05:45 Sodium 136 mEq/L (136-145) 11/04/24 05:45 Potassium 3.2 mEq/L (3.5-5.1) L 11/04/24 05:45 BUN 25 mg/dL (7-18) H 11/04/24 05:45 Creatinine 0.77 mg/dL (0.70-1.30) 11/04/24 05:45 Glucose 138 mg/dL (74-106) H 11/04/24 05:45 Phosphorus 3.4 mg/dL (2.5-4.9) 11/03/24 05:58 Magnesium 2.5 mg/dL (1.6-2.4) H 11/03/24 05:58 Total Bilirubin 1.0 mg/dL (0.2-1.0) 10/31/24 06:25 AST 16 U/L (15-37) 10/31/24 06:25 ALT 17 U/L (16-61) 10/31/24 06:25 Alkaline Phosphatase 60 U/L (45-117) 10/31/24 06:25 Lipase 34 U/L (13-75) 10/26/24 16:13 Home Medications: Amlodipine [Norvasc*] 10 mg PO DAILY 10/27/24 Finasteride [Proscar*] 5 mg PO DAILY 10/27/24 Losartan/Hydrochlorothiazide [Losartan-Hctz 100-12.5 mg Tab] 12.5 mg PO DAILY 10/27/24 Tamsulosin [Flomax*] 1 cap PO BEDTIME 10/27/24 Physician Discharge Instructions: Physician discharge instructions: Patient presented with worsening abdominal pain associated with groin pain secondary to incarcerated hernia. CT abdomen on admission with focal ventral hernia containing mildly thickened small bowel loop suggestive of incarceration. CT also noted significant fecal retention and advanced sigmoid diverticulosis. Patient was evaluated by Dr. Barraza, general surgeon who recommended medical management with empiric antibiotics, pain control, bowel rest. Patient had minimal improvement over the first 48 hours after admission. Unable to get small bowel series due to patient's mentation / delirium, which was felt to be exacerbated by ativan. NG tube was placed 10/29 and removed 10/30 as he improved. Patient's diet was slowly advanced as nausea and pain improved. His mentation improved as well with time and avoidance of further ativan. Patient worked with PT throughout hospitalization who felt he would benefit from continued home health services. Patient was feeling better, abdominal pain improved, tolerating diet but with low appetite. Discussed home health vs possible intermediate facility after discharge. Family felt comfortable taking patient home with home health and PT. [facility] hoping to get increased hours of caregiver at home, which I agree with and would significantly help the patient and family. Medications: no change in medications. continue home meds as previously prescribed. Follow up: PCP 3-5 days General surgery in ~1-2 weeks. Please call to schedule / confirm appointments Followup: Ana Paula Bello FNP [Primary Care Provider] - 1-2 Weeks (Follow up with your PCP or [facility] in one week.) Time spent managing pt's care (in minutes): 45
== END 2024-11-04 18:08 | disposition home health service (06) | DRG 395 ==
LOC: ER 15:01 → ERHOLD 20:57 → 4TH 10-27 00:03
PROVIDERS: ADMIT Family Medicine; ATTEND Hospitalist
PROC: 0DH67UZ Insertion of Feeding Device into Stomach, Via Natural or Artificial Opening (ICD-10-PCS; principal; 2024-10-29)
DX: K43.6 Other and unspecified ventral hernia with obstruction, without gangrene (principal); E78.5 Hyperlipidemia, unspecified; K59.00 Constipation, unspecified; I10 Essential (primary) hypertension; N40.0 Benign prostatic hyperplasia without lower urinary tract symptoms; G30.9 Alzheimer's disease, unspecified; F02.80 Dementia in other diseases classified elsewhere, unspecified severity, without behavioral disturbance, psychotic disturbance, mood disturbance, and anxiety; K57.30 Diverticulosis of large intestine without perforation or abscess without bleeding; Z79.899 Other long term (current) drug therapy; Z78.1 Physical restraint status
CPT/HCPCS: 36415; 74018; 74177; 74250; 80048; 80053; 80069; 81003; 83690; 83735; 84100; 85025; 93005; 97110; 97116; 97161; 97530; 99285; J0360; J1630; J2405; J2543; J3480; J3486; J7799; Q9967